=== PATIENT | female | born 1995 | race Caucasian/White ===

== ENCOUNTER 2019-10-08 16:07 | Emergency (ER) | payer OTHER ==
[~2019-10-08] VITALS: Ht 175.3 cm; Wt 113.4 kg
--- NOTE | 2019-10-08 17:17 | NUR ---
Patient discharged to home in stable conditon. Written and verbal after care instructions given. Patient verbalizes understanding of instructions. Patient ambulated with stable gait.
[2019-10-08 17:18] VITALS: BP 112/73
== END 2019-10-08 17:19 | disposition home or self-care (01) ==
LOC: ER 16:07
DX: J11.1 Influenza due to unidentified influenza virus with other respiratory manifestations (principal); Z91.018 Allergy to other foods
CPT/HCPCS: A4663

== ENCOUNTER 2019-10-09 01:30 | Emergency (ER) | payer OTHER ==
[~2019-10-09] VITALS: Ht 175.3 cm; Wt 113.4 kg
--- NOTE | 2019-10-09 02:34 | NUR ---
Patient provided with blankets per patient request. Patient in bed, no acute distress noted. VSS
[2019-10-09] MEDS ORDERED: IBUPROFEN 800 MG TABLET ONE (02:56)
--- NOTE | 2019-10-09 02:57 | NUR ---
Patient states " there is no way I am . I have not had intercourse since last menstrual period"
[2019-10-09] MEDS ORDERED: IBUPROFEN 800 MG TABLET PO ONE (03:00)
[2019-10-09 03:06] LABS: *URINE HCG, QUAL NEGATIVE (NEGATIVE)
--- NOTE | 2019-10-09 03:07 | NUR ---
Patient discharged to home in stable conditon. Written and verbal after care instructions given. Patient verbalizes understanding of instructions. Ambulated from ER with stable gait. All belongings with patient.
[2019-10-09 03:08] VITALS: BP 130/80
== END 2019-10-09 03:08 | disposition home or self-care (01) ==
LOC: ER 01:40
DX: J06.9 Acute upper respiratory infection, unspecified (principal); Z91.018 Allergy to other foods
CPT/HCPCS: 71046; 84703; 87400; 93005; A4663